=== PATIENT | female | born 1965 | race Caucasian/White ===

== ENCOUNTER 2018-06-16 14:59 | Emergency (ER) | payer OTHER ==
[2018-06-16 15:07] VITALS: BP 149/100; PULSE 78; TEMP 97.4; BMI 25.9
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
[2018-06-16] MEDS ORDERED: ACETAMINOPHEN 500 MG TABLET (FP) PO ONE (15:54)
[2018-06-16] MEDS ORDERED: IBUPROFEN 600 MG TABLET (FP) PO ONE (15:55)
[2018-06-16] MEDS ORDERED: CYCLOBENZAPRINE HCL 10 MG TABLET (FP) PO ONE ×2 (15:56→16:23)
[2018-06-16] MEDS ORDERED: LIDOCAINE 5% TOPICAL PATCH TP ONE (16:19)
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
[2018-06-16] MEDS ORDERED: LIDOCAINE PATCH REMOVAL MC SCH (22:00)
== END 2018-06-16 19:17 | disposition home or self-care (01) ==
LOC: JER 14:59
DX: M54.2 Cervicalgia (principal); M54.42 Lumbago with sciatica, left side; V44.5XXA Car driver injured in collision with heavy transport vehicle or bus in traffic accident, initial encounter; Y92.414 Local residential or business street as the place of occurrence of the external cause; Y93.89 Activity, other specified; Y99.8 Other external cause status; E11.9 Type 2 diabetes mellitus without complications; Z79.84 Long term (current) use of oral hypoglycemic drugs
CPT/HCPCS: 71046-TC-FY; 72050-TC-FY; 72100-TC-FY; 72170-TC-FY; 99281-25